=== PATIENT | female | born 1940 | race Caucasian/White ===

== ENCOUNTER 2021-12-13 13:07 | Outpatient (CLI) | payer MEDICARE | END 2021-12-13 13:08 | disposition home or self-care (01) | LOC: CSHMAMMO 13:07 | PROVIDERS: ATTEND Family Medicine | DX: Z13.820 Encounter for screening for osteoporosis (principal); Z78.0 Asymptomatic menopausal state | CPT/HCPCS: 77080 ==

== ENCOUNTER 2023-04-19 20:46 | Emergency (ER) | payer MEDICARE | END 2023-04-19 22:50 | disposition home or self-care (01) | LOC: CSHERS 20:46 | DX: S82.831A Other fracture of upper and lower end of right fibula, initial encounter for closed fracture (principal); I10 Essential (primary) hypertension; W01.0XXA Fall on same level from slipping, tripping and stumbling without subsequent striking against object, initial encounter ==

== ENCOUNTER 2024-01-08 11:06 | Outpatient (CLI) | payer MEDICARE | END 2024-01-08 11:07 | disposition home or self-care (01) | LOC: CSHMAMMO 11:06 | PROVIDERS: ATTEND Family Medicine | DX: Z78.0 Asymptomatic menopausal state (principal) | CPT/HCPCS: 77080 ==